=== PATIENT | male | born 1955 | race Caucasian/White ===

== ENCOUNTER 2020-11-09 01:45 | Outpatient (CLI) | payer MEDICARE, MEDICAID, SELFPAY ==
[2020-11-09 13:31] LABS: Anion Gap 5.5 mmol/L (3-11); BUN 15 mg/dL (7-18); CO2 30.5 mmol/L (21.0-32.0); CREATININE 1.1 mg/dL (0.70-1.30); Calcium 8.7 mg/dL (8.5-10.1); Calculated LDL 224 mg/dL (<100); Chloride 106 mmol/L (98-107); Cholesterol 317 mg/dL (<200); Glucose 84 mg/dL (74-106); HDL Cholesterol 37 mg/dL (40-60); Potassium 4.3 mmol/L (3.5-5.1); Sodium 142 mmol/L (136-145); Triglyceride 281 mg/dL (<150)
[2020-11-09 13:33] LABS: Hemoglobin A1C 5.5 % (<5.7)
== END 2020-11-09 01:46 | disposition home or self-care (01) ==
LOC: LOS 01:45
PROVIDERS: PCP Nurse Practitioner; Visit Provider Nurse Practitioner
DX: N18.31 Chronic kidney disease, stage 3a (principal); Z13.220 Encounter for screening for lipoid disorders; Z13.1 Encounter for screening for diabetes mellitus
CPT/HCPCS: 36415; 80048; 80061; 83036

== ENCOUNTER 2022-02-10 04:25 | Outpatient (CLI) | payer MEDICARE, MEDICAID, SELFPAY ==
[2022-02-10 12:36] LABS: Anion Gap 9.5 mmol/L (3-11); BUN 14 mg/dL (7-18); CO2 26.5 mmol/L (21.0-32.0); CREATININE 1.1 mg/dL (0.70-1.30); Calcium 8.5 mg/dL (8.5-10.1); Calculated LDL 165 mg/dL (<100); Chloride 104 mmol/L (98-107); Cholesterol 247 mg/dL (<200); Glucose 98 mg/dL (74-106); HDL Cholesterol 43 mg/dL (40-60); Potassium 4.3 mmol/L (3.5-5.1); Sodium 140 mmol/L (136-145); Triglyceride 199 mg/dL (<150)
[2022-02-10 12:59] LABS: Hemoglobin A1C 5.7 % (<5.7)
== END 2022-02-10 04:26 | disposition home or self-care (01) ==
LOC: LOS 04:26
PROVIDERS: PCP Nurse Practitioner; Visit Provider Nurse Practitioner
DX: N18.31 Chronic kidney disease, stage 3a (principal); R73.09 Other abnormal glucose; N52.9 Male erectile dysfunction, unspecified
CPT/HCPCS: 36415; 80048; 80061; 83036

== ENCOUNTER 2022-06-23 11:16 | Outpatient (CLI) | payer MEDICARE, MEDICAID, SELFPAY ==
--- NOTE | 2022-06-23 09:18 | DI.RAD_ITS ---
Exam(s) XR THORACIC SPINE COMPLETE EXAM: XR THORACIC SPINE COMPLETE CLINICAL HISTORY: [id number], INCREASE IN PAIN TO MID BACK. TECHNIQUE: 2D digital imaging was performed. Three views. COMPARISON: No exams were available for comparison FINDINGS: BONES: There is no fracture or destructive lesion. The vertebral bodies and posterior elements are un remarkable. ALIGNMENT: Within normal limits. DISKS: There are small endplate osteophytes andMild anterior disc space narrowing. SOFT TISSUE: Visualized lungs are clear. The heart size is normal. IMPRESSION: Mild degenerative disc changes. DATA REPOSITORY: RADIATION DOSE DELIVERED:
== END 2022-06-23 11:36 ==
LOC: DI 11:17
PROVIDERS: PCP Nurse Practitioner Family; Visit Provider Nurse Practitioner Family
DX: M47.814 Spondylosis without myelopathy or radiculopathy, thoracic region (principal)
CPT/HCPCS: 72072

== ENCOUNTER 2023-01-27 03:15 | Outpatient (CLI) | payer MEDICARE, SELFPAY ==
[2023-01-27 12:16] LABS: HCT 43.3 % (40.0-50.0); HGB 14.5 g/dL (13.5-17.5); MCH 30.6 pg (27.0-33.0); MCHC 33.5 % (32.0-36.0); MCV 91 fL (80-95); MPV 10.9 fL (8.0-11.0); Platelet Count 202 10^3/uL (130-400); RBC 4.74 10^6/uL (4.36-5.78); RDW 13.2 % (11.8-14.1); RDW-SD 44.7 fL; WBC 6.16 10^3/uL (4.4-10.8)
[2023-01-27 12:31] LABS: Anion Gap 4.8 mmol/L (3-11); BUN 14 mg/dL (7-18); CO2 30.2 mmol/L (21.0-32.0); CREATININE 1.1 mg/dL (0.70-1.30); Calcium 8.8 mg/dL (8.5-10.1); Calculated LDL 176 mg/dL (<100); Chloride 107 mmol/L (98-107); Cholesterol 270 mg/dL (<200); Estimated GFR 73.58 (mL/min/1.73m2); Glucose 93 mg/dL (74-106); HDL Cholesterol 44 mg/dL (40-60); Potassium 4.2 mmol/L (3.5-5.1); Sodium 142 mmol/L (136-145); Triglyceride 253 mg/dL (<150)
== END 2023-01-27 03:16 | disposition home or self-care (01) ==
LOC: LOS 03:16
PROVIDERS: PCP Nurse Practitioner Family; Visit Provider Nurse Practitioner Family
DX: E78.5 Hyperlipidemia, unspecified (principal); N52.9 Male erectile dysfunction, unspecified; M54.59 Other low back pain; N18.31 Chronic kidney disease, stage 3a
CPT/HCPCS: 36415; 80048; 80061; 85027

== ENCOUNTER 2024-10-12 01:40 | Outpatient (CLI) | payer MEDICARE, SELFPAY ==
[2024-10-12 12:37] LABS: Anion Gap 5.2 mmol/L (3-11); BUN 16 mg/dL (7-18); CO2 29.8 mmol/L (21.0-32.0); CREATININE 1.2 mg/dL (0.70-1.30); Calculated LDL 210 mg/dL (<100); Chloride 107 mmol/L (98-107); Cholesterol 304 mg/dL (<200); Estimated GFR 65.46 (mL/min/1.73m2); Glucose 98 mg/dL (74-106); HDL Cholesterol 42 mg/dL (>or=40); Potassium 4.6 mmol/L (3.5-5.1); Sodium 142 mmol/L (136-145); Triglyceride 262 mg/dL (<150)
[2024-10-12 13:39] LABS: Hemoglobin A1C 5.6 % (<5.7)
== END 2024-10-12 01:41 | disposition home or self-care (01) ==
LOC: LOS 01:40
PROVIDERS: PCP Nurse Practitioner Family; Visit Provider Nurse Practitioner Family
DX: N52.9 Male erectile dysfunction, unspecified; N18.31 Chronic kidney disease, stage 3a; E78.2 Mixed hyperlipidemia; R73.09 Other abnormal glucose
CPT/HCPCS: 36415; 80048; 80061; 84153; 83036

== ENCOUNTER 2025-04-24 11:18 | Emergency (ER) | payer MEDICARE, SELFPAY ==
[2025-04-24] VITALS (25 sets, daily range): BP systolic 138–172; BP diastolic 74–92; PULSE 77–97; RESP 10–30; TEMP 34.5; O2SAT 97–100
--- NOTE | 2025-04-24 11:00 | DI.CT_ITS ---
Exam(s) CT BRAIN NECK CTA EXAM: CT BRAIN NECK CTA CLINICAL HISTORY: cva, rt facial droop 1 hr. TECHNIQUE: Imaging Protocol: Axial CT angiography was performed with multi- slice acquisition and multi-planar and/or 3D reconstructions. CONTRAST MATERIAL: Intravenous: Omnipaque 350 Contrast volume:structured data in ml COMPARISON: No exams were available for comparison FINDINGS: CTA Neck W: Aortic arch anatomy: The aortic arch anatomy is conventional and there is no significant stenosis at the origin of the great vessels off of the aortic arch. No intimal flap evident. Anterior circulation: Both common carotid arteries ascend with normal luminal diameters. At the level the left carotid bulb and proximal left ICA there is some partially calcified plaque on the anterolateral wall with approximately 20 percent stenosis. The left ICA above this level in the upper neck appears unremarkable as well as in the skull base-carotid canal. At the right carotid bulb and proximal right ICA there is minimal if any significant plaque. No significant stenosis and the right ICA in the upper neck is patent as well as within the skull base-right carotid canal. There is significant atherosclerotic disease in both intra cavernous internal carotid arteries. There is some stenosis in the left intracavernous ICA. There is high-grade stenosis in the intra cavernous right ICA. The supraclinoid aspect appears patent and there is flow evident within the right middle cerebral artery. the left A1 segment is dominant. There is calcified plaque evident in the left intra cavernous ICA but without critical stenosis at this time. Flow in left middle cerebral artery is patent. Left A1 segment is patent as are the anterior cerebral arteries and there is no evidence of aneurysm at the level the anterior communicating artery. Posterior circulation: Both vertebral arteries originated conventional fashion off of the subclavian arteries. Both vertebral arteries ascend with normal luminal diameters. At the skull base both vertebral arteries contribute to the formation of the basilar artery. There is no stenosis nor calcified plaque in the vertebral arteries at the skull base. CTA Brain W: Anterior circulation: See above Posterior circulation: Basilar artery ascends with mild stenosis. No critical stenosis. Distally it gives off patent superior cerebellar arteries and above this level terminates as patent bilateral posterior cerebral arteries. There is no evidence of aneurysm at the tip of the basilar artery nor elsewhere in the [id number]. CT BRAIN: There is no evidence of intracranial hemorrhage, mass effect, or shift of midline structures. There are no extra-axial fluid collections. Ventricles are not enlarged or shifted. There are no ring enhancing lesions in the brain and no abnormal meningeal enhancement. IMPRESSION: 1. There is a critical stenosis versus focal occlusion in the intra cavernous aspect of the right internal carotid artery. 2. Flow above this level in the ipsilateral supraclinoid right ICA and middle cerebral artery appear patent. 3. Patent vertebral arteries. 4. No focal findings in the brain. Also no ring-enhancing lesions nor abnormal meningeal enhancement. 5. Some plaque evident at the left carotid bulb-proximal left ICA but estimated at approximately 20 percent stenosis at this level. No evidence of dissection in the carotids. Discussed by phone with ER physician 04/24/2025 at 12:02 p.m. RADIATION DOSE DELIVERED: 2,310.46mGy.cm Total DLP DATA REPOSITORY: All CT scans at this facility are submitted to the National Radiology Data Registry (NRDR) Dose Index Registry (DIR) with the [employer] (ACR). RADIATION OPTIMIZATION: All CT scans at this facility use at least one of these dose optimization techniques: automated exposure control; mA and/or kV adjustment per patient size (includes targeted exams where dose is matched to clinical indication); or iterative reconstruction.
--- NOTE | 2025-04-24 11:00 | RT.EKG_ITS ---
APPROVED REPORT Exam: Resting ECG Reason for Exam: cva Patient Location: E HR:79 bpm ECG Measurements Heart Rate 79 AXIS AR 208 P 25 QRSd 93 QRS 65 QT 408 T 53 QTc 469 Conclusion Sinus rhythm...normal P axis, V-rate 60- 99
[2025-04-24] MEDS: Normal Saline - Diluent 50 ML VIAL IJ (11:24)
[2025-04-24] MEDS: Omnipaque 350 MG/ML 100 ML BTL IJ (11:24)
[2025-04-24] MEDS: Normal Saline Flush 10 ML SYR IVP (11:28)
[2025-04-24 11:43] LABS: Abs Immature Grans 0.03 10^3/uL (0.0-0.06); HCT 37.3 % (40.0-50.0); HGB 13.0 g/dL (13.5-17.5); Immature Grans % 0.3 %; MCH 31.0 pg (27.0-33.0); MCHC 34.9 % (32.0-36.0); MCV 89 fL (80-95); MPV 10.4 fL (8.0-11.0); Platelet Count 175 10^3/uL (130-400); RBC 4.19 10^6/uL (4.36-5.78); RDW 12.5 % (11.8-14.1); RDW-SD 39.9 fL; WBC 9.01 10^3/uL (4.4-10.8)
--- NOTE | 2025-04-24 11:43 | W.ED.GENAD ---
Discharge Plan Disposition Patient Disposition: Transfer-Acute Inpatient Care Specific Acute Inpt Facility: [facility] Condition: Critical Discharge Details Clinical Impression: Acute cerebrovascular accident (CVA) Primary Care Provider: Kenya Lewis ED Provider: Joel Quinteros Home Meds and New Rx's Prescriptions: No Action brimonidine-timolol [Combigan] 0.2-0.5 % drops 1 drp ophthalmic (eye) BID atorvastatin [Lipitor] 80 mg tablet 80 mg PO DAILY Rx Instructions: Take for 90 days aspirin 81 mg tablet,chewable 81 mg PO DAILY Rx Instructions: take X 90 days sildenafil (pulm.hypertension) 20 mg tablet 20 mg PO As directed Qty: 20 4RF clindamycin HCl 150 mg capsule 450 mg PO TID 7 Days Qty: 63 0RF meclizine 25 mg tablet 25 mg PO BID PRN (Reason: dizziness) Qty: 30 0RF Discharge Data Discharge Date/Time-TO BE ENTERED AT DEPARTURE: 04/24/25 14:58 HPI General Mode of arrival: EMS. Date/Time Provider Initiated Documentation: 04/24/25 11:30. Information obtained by: patient and EMS. HPI Narrative: 69-year-old male with history of hyperlipidemia, chronic kidney disease, presents with acute onset of right-sided weakness. Patient noted sudden onset weakness at 10:30 AM. Called EMS who found the patient with mild right-sided weakness that became significantly worse and route to the hospital. Patient having nausea and vomited. EMS gave Zofran 4 mg IV prior to arrival. Related Data Home Medications Medication Instructions Recorded Confirmed sildenafil (pulm.hypertension) 20 20 mg PO As directed #20 tabs 10/13/22 05/01/25 mg tablet brimonidine 0.2 %-timolol 0.5 % 1 drp ophthalmic (eye) BID 11/10/24 05/01/25 eye drops (Combigan) aspirin 81 mg chewable tablet 81 mg PO DAILY 04/27/25 05/01/25 atorvastatin 80 mg tablet (Lipitor) 80 mg PO DAILY 04/27/25 05/01/25 clindamycin HCl 150 mg capsule 450 mg (3 x 150 mg) PO TID 7 days 04/29/25 05/01/25 #63 caps meclizine 25 mg tablet 25 mg PO BID PRN dizziness #30 tabs 04/29/25 05/01/25 Previous Rx's Medication Instructions Recorded sildenafil (pulm.hypertension) 20 20 mg PO As directed #20 tabs 10/13/22 mg tablet clindamycin HCl 150 mg capsule 450 mg (3 x 150 mg) PO TID 7 days 04/29/25 #63 caps meclizine 25 mg tablet 25 mg PO BID PRN dizziness #30 tabs 04/29/25 Allergies Allergy/AdvReac Type Severity Reaction Status Date / Time Penicillins Allergy Intermediate Hives Unverified 05/01/25 14:27 carrot Allergy ONLY WHEN Unverified 05/01/25 14:27 RAW travoprost Allergy SWELLLING Unverified 05/01/25 14:27 ALL OVER dorzolamide AdvReac DEPRESSION Unverified 05/01/25 14:27 potato AdvReac Eye Verified 05/01/25 14:27 irritation timolol AdvReac DEPRESSION Unverified 05/01/25 14:27 PECAN Allergy Unknown Uncoded 05/01/25 14:27 General Stated Complaint: CVA/TIA ANTHONY: 2 Review of Systems All systems reviewed & are unremarkable except as noted in HPI and below Neurologic Neurologic: Reports as per HPI and Reports sensory deficit (Patient notes right side felt numb) Exam Const General: cooperative and no acute distress HENME Head: normocephalic and atraumatic Eyes Conjunctivae: normal conjunctivae Sclera: normal sclerae EOM: EOM intact bilaterally Neck Neck: trachea midline and supple Resp Auscultation: clear to auscultation bilaterally, no rales, no rhonchi and no wheezes Cardio Rate: regular rate and not tachycardic Rhythm: regular rhythm GI Palpation: soft, not firm, no guarding, no masses, not rigid and nontender Skin General skin exam: no rashes or lesions noted Neuro General: patient alert, patient awake and tone normal Cognition: normal cognition Speech: abnormal speech slurred Motor: strength 5/5 throughout Sensory Exam: no sensory deficits noted Extrem General: no edema Psych Appearance: grossly normal Mental Status: mental status grossly normal Course Vital Signs Vital signs: Vital Signs Temperature 34.5 C L 04/24/25 11:38 Pulse 81 04/24/25 11:38 Respiratory Rate 18 04/24/25 11:38 Blood Pressure 172/75 H 04/24/25 11:38 Pulse Oximetry 100 04/24/25 11:38 Temperature 34.5 C L 04/24/25 11:38 Temperature Source Tympanic 04/24/25 11:38 Pulse 81 04/24/25 11:38 Respiratory Rate 18 04/24/25 11:38 Blood Pressure 172/75 H 04/24/25 11:38 Pulse Oximetry 100 04/24/25 11:38 Oxygen Delivery Method Room Air 04/24/25 11:38 Oxygen Flow Rate 0 04/24/25 11:38 Medical Decision Making 1100––69-year-old male with history of chronic kidney disease, hyperlipidemia, presents with new onset right-sided weakness that started around 1030 this morning. Patient had significant worsening of right-sided weakness and route. EMS initiated stroke alert. Patient was seen in the hallway and had rapid transfer to CT imaging. Glucose is normal. 1130 --patient was seen immediately upon return from CT imaging and has had significant spontaneous improvement of his symptoms. House he is now able to move his right side, speaking more clearly still with some mild dysarthria. Patient was full strength on his right upper and lower extremity. He continues to have mild right facial weakness. Patient continues to have nausea. He was given Zofran by EMS. I will give Reglan IV. Will initiate stat teleneuro consult. 1150 --I have initiated teleneuro consult stat. I have contacted [facility] [place] transfer center to request transfer capacity. CT imaging sent for review. Awaiting callback. --CT brain and CTA of the head and neck interpreted by radiology: IMPRESSION: 1. There is a critical stenosis versus focal occlusion in the intra cavernous aspect of the right internal carotid artery. 2. Flow above this level in the ipsilateral supraclinoid right ICA and middle cerebral artery appear patent. 3. Patent vertebral arteries. 4. No focal findings in the brain. Also no ring-enhancing lesions nor abnormal meningeal enhancement. 5. Some plaque evident at the left carotid bulb-proximal left ICA but estimated at approximately 20 percent stenosis at this level. No evidence of dissection in the carotids. 1209 -- Patient seen by Dr. Ulysses bautista. Patient having worsening symptoms starting exam. Risk benefits of TNK were reviewed with patient by myself and Dr. Arora. Patient provides informed consent to treatment with TNK. I spoke again with [facility], Dr. Eduardo Delacruz and Dr. Chaudhry. They will accept the patient in transfer pending capacity check. 1223 -- [facility] at [facility] transfer center noting per medical voucher clerk that they only have one bed available in icu and cannot use for an nonintervention patient. [facility] is refusing to accept the patient in transfer. I have contacted [facility] transfer center to request transfer. 1322 -- I spoke with Dr. Haynes, stroke neurology at [facility], discussed ED presentation course, she will be reviewing imaging and calling back. 1430 --[facility] transfer center returned call and notes patient will be accepted by Dr. Haynes. They recommend keeping blood pressure less than 180/105. Patient was reassessed and symptoms have improved. Blood pressure less than goal. Will arrange for EMS transfer. Lab Data Lab results reviewed: Yes I reviewed the patient's lab results. Labs: Laboratory Tests Range/Units 04/24/25 04/24/25 11:30 13:15 WBC (4.4-10.8) 10^3/uL 9.01 RBC (4.36-5.78) 10^6/uL 4.19 L Hgb (13.5-17.5) g/dL 13.0 L Hct (40.0-50.0) % 37.3 L MCV (80-95) fL 89 MCH (27.0-33.0) pg 31.0 MCHC (32.0-36.0) % 34.9 RDW (11.8-14.1) % 12.5 Plt Count (130-400) 10^3/uL 175 MPV (8.0-11.0) fL 10.4 Immature Gran % % 0.3 Neutrophils % % 50.1 Lymphocytes % % 35.8 Monocytes % % 10.2 Eosinophils % % 2.7 Basophils % % 0.9 Nucleated RBC % (0.0-0.3) % 0.0 Absolute Neutrophils (1.2-6.7) 10^3/uL 4.51 Absolute Lymphocytes (1.2-3.4) 10^3/uL 3.23 Absolute Monocytes (0.1-0.8) 10^3/uL 0.92 H Absolute Eosinophils (0.0-0.7) 10^3/uL 0.24 Absolute Basophils (0.0-0.2) 10^3/uL 0.08 PT (9.1-11.1) sec 11.1 INR (0.9-1.1) 1.1 Sodium (136-145) mmol/L 140 Potassium (3.5-5.1) mmol/L 3.9 Chloride (98-107) mmol/L 106 Carbon Dioxide (21.0-32.0) mmol/L 23.8 Anion Gap (3-11) mmol/L 10.2 BUN (7-18) mg/dL 14 Creatinine (0.70-1.30) mg/dL 1.2 Est GFR (CKD-EPI 2020) (mL/min/1.73m2) 65.46 Glucose (74-106) mg/dL 146 H Calcium (8.5-10.1) mg/dL 7.9 L Magnesium (1.8-2.4) mg/dL 2.1 Total Bilirubin (0.2-1.0) mg/dL 0.5 AST (15-37) U/L 16 ALT (16-63) U/L 17 Alkaline Phosphatase (46-116) U/L 55 Troponin I (<or=76) ng/L < 4 < 4 Total Protein (6.4-8.2) g/dL 6.3 L Albumin (3.4-5.0) g/dL 3.0 L Quality:SDOH Health Related Social Needs: Health related social needs lonely/isolated Critical Care Time Critical Care Time Critical Care Time: Yes Total Critical Care Time: 80 Attestation: Due to a high probability of clinically significant, life threatening deterioration, the patient required my highest level of preparedness to intervene emergently and I personally spent this critical care time directly and personally managing the patient. This critical care time included obtaining a history; examining the patient; pulse oximetry; ordering and review of studies; arranging urgent treatment with development of a management plan; evaluation of patient's response to treatment; frequent reassessment; and, discussions with other providers. This critical care time was performed to assess and manage the high probability of imminent, life-threatening deterioration that could result in multi-organ failure. It was exclusive of separately billable procedures and treating other patients and teaching time. Please see MDM section and the rest of the note for further information on patient assessment and treatment. 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 Maternal Grandfather , 77 Cancer Paternal Grandfather , 44 Cancer Maternal Grandmother , 62 Cancer Paternal Grandmother , 92 No problems noted. Son No problems noted. Daughter No problems noted. Social History Smoking/Tobacco Use Status: Never Second Hand Exposure: Yes Smoking risk assessment performed?: Yes Alcohol Intake: current Alcohol Intake frequency: a few times a month Alcohol type: beer Drug use: Rarely Substance use type: marijuana Caregiver/Support person: No Household members: children Housing: house Communication Needs: None Do you need help understanding health information?: Never current occupation: Retired Pets and animals: Yes Pets and animals: cat(s) Sexually active: No Do you think of yourself as: straight/heterosexual Current gender identity: male What is your relationship status?: How often do you talk on the phone with friends or family?: three or more times per week How often do you get together with friends or relatives?: twice per week How often do you attend zoroastrian or scientology services?: decline to answer Do you belong to any clubs or organized social groups?: yes Panel score (0-1 are the most socially isolated patients): 2 What type of physical activity do you participate in: bicycling, weight lifting and other Details: Hiking Duration: 30-45 minutes/day Frequency: 3-4 times per week Kasia/Scientology: Christianity Special kasia needs: No Seatbelt use: always Helmet use: Yes Helmet use: always Drive intox or ride w/intox feeder driver: No Do you feel safe at home: Yes
[2025-04-24 11:53] LABS: INR 1.1 (0.9-1.1); Prothrombin Time 11.1 sec (9.1-11.1)
[2025-04-24 12:19] LABS: ALT 17 U/L (16-63); AST 16 U/L (15-37); Albumin 3.0 g/dL (3.4-5.0); Alkaline Phosphatase 55 U/L (46-116); Anion Gap 10.2 mmol/L (3-11); BUN 14 mg/dL (7-18); Bilirubin, Total 0.5 mg/dL (0.2-1.0); CO2 23.8 mmol/L (21.0-32.0); Calcium 7.9 mg/dL (8.5-10.1); Chloride 106 mmol/L (98-107); Glucose 146 mg/dL (74-106); Magnesium 2.1 mg/dL (1.8-2.4); Potassium 3.9 mmol/L (3.5-5.1); Sodium 140 mmol/L (136-145); Total Protein 6.3 g/dL (6.4-8.2); Troponin I < 4 ng/L (<or=76)
[2025-04-24] MEDS: Metoclopramide 10 MG/2 ML VIAL IVP (12:21)
[2025-04-24] MEDS: Tenecteplase 50 MG KIT 20 MG IVP (12:21)
--- NOTE | 2025-04-24 12:51 | DI.VRAD_ITS ---
PROCEDURE INFORMATION: Exam: CTA Head Without And With Contrast, Arteriography Exam date and time: 04/24/2025 11:17 AM Age: 69 years old Clinical indication: Other: CVA, RT facial droop 1 hr TECHNIQUE: Imaging protocol: Computed tomographic angiography of the head without and with contrast. Exam focused on the arteries. 3D rendering (Not supervised by radiologist): MIP and/or 3D reconstructed images were created by the technologist. Contrast material: OMNIPAQUE 350; Contrast volume: 70 ml; Contrast route: INTRAVENOUS (IV); COMPARISON: No relevant prior studies available. FINDINGS: ANTERIOR CIRCULATION: Right internal carotid artery: Severe stenosis of the cavernous segment of the right ICA. Right middle cerebral artery: No occlusion or significant stenosis. No aneurysm. Right anterior cerebral artery: Atrophic right A1. Left internal carotid artery: Moderate to severe stenosis of the cavernous segment of the left ICA. Left middle cerebral artery: No occlusion or significant stenosis. No aneurysm. Left anterior cerebral artery: No occlusion or significant stenosis. No aneurysm. POSTERIOR CIRCULATION: Right vertebral artery: No occlusion or significant stenosis. No aneurysm. Left vertebral artery: No occlusion or significant stenosis. No aneurysm. Basilar artery: No occlusion or significant stenosis. No aneurysm. Right posterior cerebral artery: No occlusion or significant stenosis. No aneurysm. Left posterior cerebral artery: No occlusion or significant stenosis. No aneurysm. HEAD: Brain: Normal. No hemorrhage. Unremarkable white matter. No mass effect. Cerebral ventricles: Normal. No ventriculomegaly. Bones: Unremarkable. No acute fracture. Paranasal sinuses: Visualized sinuses are normal. No fluid levels. Mastoid air cells: Visualized mastoids are normal. No mastoid effusion. Soft tissues: Unremarkable. IMPRESSION: 1. No large vessel occlusion. 2. Severe stenosis of the right cavernous ICA. 3. Moderate to severe stenosis of the cavernous left ICA. 4. Unremarkable CT head. PROCEDURE INFORMATION: Exam: CTA Neck Without And With Contrast Exam date and time: 04/24/2025 11:17 AM Age: 69 years old Clinical indication: Other: CVA, RT facial droop 1 hr TECHNIQUE: Imaging protocol: Computed tomographic angiography of the neck without and with contrast. Exam focused on the cervical segments of the vasculature. 3D rendering (Not supervised by radiologist): MIP and/or 3D reconstructed images were created by the technologist. Contrast material: OMNIPAQUE 350; Contrast volume: 70 ml; Contrast route: INTRAVENOUS (IV); COMPARISON: No relevant prior studies available. FINDINGS: Right common carotid artery: No stenosis. No dissection or occlusion. Right internal carotid artery: No stenosis of the extracranial segment. No dissection or occlusion. Right external carotid artery: No occlusion or stenosis of the origin. Left common carotid artery: No stenosis. No dissection or occlusion. Left internal carotid artery: Mild stenosis at the carotid bulb. No dissection or occlusion. Left external carotid artery: No occlusion or stenosis of the origin. Right vertebral artery: No stenosis. No dissection or occlusion. Left vertebral artery: No stenosis. No dissection or occlusion. Soft tissues: Normal. No significant soft tissue swelling. Bones/joints: No acute fracture. IMPRESSION: Mild left ICA stenosis at the carotid bulb. REFERENCES: NASCET CRITERIA. The degree of stenosis in the cervical segment of the internal carotid artery is based on NASCET criteria. Normal is no stenosis. Mild is less than 50% stenosis. Moderate is 50-69% stenosis. Severe is 70% to 99% stenosis. Total occlusion is no detectable patent lumen. Dictated and Authenticated by: Jaida Kimball MD. Orderin Aldair Maldonado MD
[2025-04-24] MEDS: Lactated Ringers 1,000 ML 125 ML IV (13:17)
[2025-04-24 13:54] LABS: Troponin I < 4 ng/L (<or=76)
== END 2025-04-24 14:58 | disposition short-term general hospital (02) ==
PROVIDERS: Emergency Provider Student in an Organized Health Care Education/Training Program; PCP Nurse Practitioner Family
DX: I63.9 Cerebral infarction, unspecified (principal); R11.2 Nausea with vomiting, unspecified; Z60.8 Other problems related to social environment; Z87.448 Personal history of other diseases of urinary system; Z86.2 Personal history of diseases of the blood and blood-forming organs and certain disorders involving the immune mechanism
CPT/HCPCS: 36415; 36416; 70496; 70498; 80053; 82962; 93005; 96361; 96374; 96375; 99285; 99291; 83735; 84484; 85025; 85610; 93010; J2765; J3101; J3490

== ENCOUNTER 2025-04-29 06:08 | Emergency (ER) | payer MEDICARE, SELFPAY ==
[2025-04-29] VITALS (15 sets, daily range): BP systolic 160–193; BP diastolic 80–115; PULSE 61–81; RESP 9–19; TEMP 36.7; O2SAT 98–100
--- NOTE | 2025-04-29 06:37 | W.ED.GENAD ---
Discharge Plan Discharge Details Chief Complaint: Fall/Non TraumaCriteria Clinical Impression: Fall, Episodic lightheadedness Primary Care Provider: Kenya Lewis ED Provider: Khai Chow Home Meds and New Rx's Prescriptions: No Action brimonidine-timolol [Combigan] 0.2-0.5 % drops 1 drp ophthalmic (eye) BID atorvastatin [Lipitor] 80 mg tablet 80 mg PO DAILY Rx Instructions: Take for 90 days aspirin 81 mg tablet,chewable 81 mg PO DAILY Rx Instructions: take X 90 days sildenafil (pulm.hypertension) 20 mg tablet 20 mg PO As directed Qty: 20 4RF HPI General Date/Time Provider Initiated Documentation: 04/29/25 06:14. HPI Narrative: This is a 69-year-old male with a past medical history of high cholesterol, a recent stroke with subsequent right-sided deficits (stroke occurred less than 7 days ago, patient received TNK and was transferred to [facility] and was subsequently discharged about 3 to 4 days ago) presents today for nausea and slight weakness and imbalance. And fall. when he woke up this morning he felt Patient states that lightheaded dizzy and slightly imbalance, as well as mildly nauseous. This caused him to fall and hit the right side of his head and neck. He was able to get up on his own. He had no loss of consciousness. Patient subsequently contacted EMS and was brought in for further assessment. Currently he admits to mild right-sided neck achiness, and mild nausea but no other complaints. He denies fever or chills. He denies headache or vision changes. He denies any chest pain or shortness of breath. No other complaints at this time. No other modifying factors. Related Data Home Medications Medication Instructions Recorded Confirmed sildenafil (pulm.hypertension) 20 20 mg PO As directed #20 tabs 10/13/22 04/29/25 mg tablet brimonidine 0.2 %-timolol 0.5 % 1 drp ophthalmic (eye) BID 11/10/24 04/29/25 eye drops (Combigan) aspirin 81 mg chewable tablet 81 mg PO DAILY 04/27/25 04/29/25 atorvastatin 80 mg tablet (Lipitor) 80 mg PO DAILY 04/27/25 04/29/25 Previous Rx's Medication Instructions Recorded sildenafil (pulm.hypertension) 20 20 mg PO As directed #20 tabs 10/13/ mg tablet Allergies Allergy/AdvReac Type Severity Reaction Status Date / Time Penicillins Allergy Intermediate Hives Unverified 04/29/25 06:31 carrot Allergy ONLY WHEN Unverified 04/29/25 06:31 RAW travoprost Allergy SWELLLING Unverified 04/29/25 06:31 ALL OVER dorzolamide AdvReac DEPRESSION Unverified 04/29/25 06:31 potato AdvReac Eye Verified 04/29/25 06:31 irritation timolol AdvReac DEPRESSION Unverified 04/29/25 06:31 PECAN Allergy Unknown Uncoded 04/29/25 06:31 General Stated Complaint: Fall/Non TraumaCriteria ANTHONY: 3 Exam Narrative Exam Narrative: 1.Const: Well-nourished, Well-developed, appearing stated age 2.Eyes: PERRL, no conjunctival injection, and symmetrical lids. 3.ENT: Atraumatic external nose and ears. Moist MM. Neck: Symmetric, trachea midline, No thyromegaly. There is no evidence of raccoon eyes, adan sign, CSF rhinorrhea, mastoid tenderness, cranial crepitus, Exophthalmos, or hyphema. Patient demonstrates intact dentition with no signs of tooth avulsion or fracture, no signs of jaw deformity, no evidence of a LeFort's fracture, with an intact palate, nose and orbital region. There is no evidence of a nasal septal hematoma. No proptosis. Jaw closes symmetrically. Airway is clear. 4.CVS: +S1/S2, Peripheral pulses 2+ and equal in all extremities. Brisk capillary refill in all extremities. 5.RESP: Unlabored respiratory effort. Clear to auscultation bilaterally. No wheezes rales or rhonchi 6.GI: Soft, Nontender/Nondistended, No hepatosplenomegaly. No guarding or rebound. 7.MSK: Normocephalic/Atraumatic, Extremities w/o deformity or ttp No cyanosis or clubbing, Normal movement of all extremities 8.Skin: Warm, Dry. No rashes or lesions. 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 Sensation grossly intact, no focal neurologic deficits. All 6 cardinal planes of vision are fully intact. No evidence of rotatory or vertical nystagmus. The patient demonstrated a normal [id number]-ehwq-cvvynk, good dexterity. There was no evidence of dysdiadochokinesia. Patient was able to ambulate without difficulty. There was no wide-based gait. Romberg testing was normal. Qsha-vs-vzoq testing was normal. Sensation was intact bilaterally as well as muscle strength bilaterally for all extremities. Patient was able to verbalize butter cup with no slurring, or miss pronunciation. 10.Psych: (AAO) x3. Appropriate mood and affect Course Vital Signs Vital signs: Vital Signs Temperature 36.7 C 04/29/25 06:14 Pulse 70 04/29/25 06:14 Respiratory Rate 14 04/29/25 06:14 Blood Pressure 180/88 H 04/29/25 06:14 Temperature 36.7 C 04/29/25 06:14 Temperature Source Oral 04/29/25 06:14 Pulse 70 04/29/25 06:14 Respiratory Rate 14 04/29/25 06:14 Blood Pressure 180/88 H 04/29/25 06:14 Blood Pressure Position Supine 04/29/25 06:14 Oxygen Delivery Method Room Air 04/29/25 06:14 Oxygen Flow Rate 0 04/29/25 06:14 End Tidal Co2 2 04/29/25 06:14 Pain Level 2 04/29/25 06:28 Medical Decision Making This is a 69-year-old male with a past medical history of high cholesterol, a recent stroke with subsequent right-sided deficits (stroke occurred less than 7 days ago, patient received TNK and was transferred to [facility] and was subsequently discharged about 3 to 4 days ago) presents today for nausea and slight weakness and imbalance. And fall. when he woke up this morning he felt Patient states that lightheaded dizzy and slightly imbalance, as well as mildly nauseous. This caused him to fall and hit the right side of his head and neck. He was able to get up on his own. He had no loss of consciousness. Patient subsequently contacted EMS and was brought in for further assessment. Currently he admits to mild right-sided neck achiness, and mild nausea but no other complaints. He denies fever or chills. He denies headache or vision changes. He denies any chest pain or shortness of breath. No other complaints at this time. No other modifying factors. Exam demonstrates well-appearing male, no focal tenderness of the head neck chest abdomen or pelvis. No midline cervical spine tenderness. No evidence of acute focal neurologic deficit on exam at this time. Differential includes mild dehydration, peripheral vertigo, residual symptoms from initial stroke, pancreatitis. We will evaluate for concerning etiologies, will gently rehydrate, give meclizine, monitor closely and reassess. 7:04 AM Patient's laboratory workup is returned reassuring. No significant abnormalities. Lipase normal, no white count or bandemia. Still pending CT imaging at this time. Patient will be signed out to my colleague Dr. Brantley will follow-up on imaging results. 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 Maternal Grandfather , 77 Cancer Paternal Grandfather , 44 Cancer Maternal Grandmother , 62 Cancer Paternal Grandmother , 92 No problems noted. Son No problems noted. Daughter No problems noted. Social History Smoking/Tobacco Use Status: Never Second Hand Exposure: Yes Smoking risk assessment performed?: Yes Alcohol Intake: current Alcohol Intake frequency: a few times a month Alcohol type: beer Drug use: Rarely Substance use type: marijuana Caregiver/Support person: No Household members: children Housing: house Communication Needs: None Do you need help understanding health information?: Never current occupation: Retired Pets and animals: Yes Pets and animals: cat(s) Sexually active: No Do you think of yourself as: straight/heterosexual Current gender identity: male What is your relationship status?: How often do you talk on the phone with friends or family?: three or more times per week How often do you get together with friends or relatives?: twice per week How often do you attend holiness or tenriism services?: decline to answer Do you belong to any clubs or organized social groups?: yes Panel score (0-1 are the most socially isolated patients): 2 What type of physical activity do you participate in: bicycling, weight lifting and other Details: Hiking Duration: 30-45 minutes/day Frequency: 3-4 times per week Kasia/Protestant: Jehovah'S Witness Special kasia needs: No Seatbelt use: always Helmet use: Yes Helmet use: always Drive intox or ride w/intox school bus driver: No Do you feel safe at home: Yes PAWSS Have you Been Recently Intoxicated or Drunk Within the Last 30 days?: No Have you Ever Experienced Previous Episodes of Alcohol Withdrawal?: No Have you ever Experienced Withdrawal Seizures?: No Have you ever Experienced Delirium Tremens(DT)s?: No Have you ever undergone Alcohol Rehabilitation Treatment (i.e, inpt ot outpatient treatment programs)?: No Have you ever Experienced Blackouts?: No Have you ever Combined Alcohol with other Downers within the last 90 days?: No Have you ever Combined Alcohol with any other Substance of Abuse during the last 90 days?: No Positive Blood Alcohol level on Presentation? [PCS.BAL]: No Evidence of Increased Autonomic Activity (i.e. HR>120, tremor, sweating, agitation, nausea)?: No Result: 0
[2025-04-29 06:38] LABS: Abs Immature Grans 0.03 10^3/uL (0.0-0.06); HCT 40.1 % (40.0-50.0); HGB 14.0 g/dL (13.5-17.5); Immature Grans % 0.4 %; MCH 30.8 pg (27.0-33.0); MCHC 34.9 % (32.0-36.0); MCV 88 fL (80-95); MPV 10.2 fL (8.0-11.0); Platelet Count 197 10^3/uL (130-400); RBC 4.54 10^6/uL (4.36-5.78); RDW 12.2 % (11.8-14.1); RDW-SD 39.8 fL; WBC 7.20 10^3/uL (4.4-10.8)
[2025-04-29] MEDS: Omnipaque 350 MG/ML 100 ML BTL IJ (06:53)
[2025-04-29] MEDS: Normal Saline Flush 10 ML SYR IVP (06:54)
[2025-04-29] MEDS: Normal Saline - Diluent 50 ML VIAL IJ (06:54)
[2025-04-29 06:57] LABS: Lipase 29 U/L (<53)
[2025-04-29 06:59] LABS: ALT 17 U/L (10-49); AST 19 U/L (<34); Albumin 3.8 g/dL (3.4-5.0); Alkaline Phosphatase 67 U/L (46-116); Anion Gap 9 mmol/L (3-11); BUN 12 mg/dL (9-23); Bilirubin, Total 0.80 mg/dL (0.2-1.2); CO2 26.0 mmol/L (20.0-31.0); Calcium 9.0 mg/dL (8.3-10.6); Chloride 107 mmol/L (98-107); Glucose 107 mg/dL (74-106); Potassium 3.8 mmol/L (3.5-5.1); Sodium 142 mmol/L (136-145); Total Protein 6.7 g/dL (5.7-8.2)
--- NOTE | 2025-04-29 07:07 | DI.CT_ITS ---
Exam(s) CT HEAD CERV SPINE FACIAL WO EXAM: CT HEAD CERV SPINE FACIAL WO CLINICAL HISTORY: recent stroke and TNK,, now fall on R side. TECHNIQUE: Imaging Protocol: Axial computed tomography images with coronal and sagittal reformatted images were created and reviewed COMPARISON: CT CT BRAIN NECK CTA from 04/24/2025 FINDINGS: CT BRAIN: There are no skull fractures nor fluid in the visualized paranasal sinuses. There is no evidence of intracranial hemorrhage, mass effect, or shift of midline structures. There are no extra-axial fluid collections. The ventricles are not enlarged or shifted and there is no blood within the ventricular system nor within the basal cisterns. CT MAXILLOFACIAL BONES: There is no evidence of facial fractures nor fluid in the visualized paranasal sinuses. there is no evidence of orbital blowout fracture. No fluid in the mastoid air cells nor in the middle ear cavities. CT CERVICAL SPINE: There is no evidence of fracture nor listhesis. No significant prevertebral soft tissue swelling. There is chronic disc space narrowing at C4-5 level with bilateral Luschka joint osteophytes at this level. There is also some degenerative disc disease at C5-6 level. There is no significant facet art hropathy in the cervical spine and no facet malalignment. Some calcification is noted in the supraspinous ligament but no evidence of lane-termite control service representative's fractures of the spinous process is. IMPRESSION: No acute intracranial findings on this noninfused CT scan of the brain. No evidence of facial nor orbital blowout fractures. No evidence of cervical spine fracture, malalignment, nor acute compromise of the cervical spinal canal. Preliminary virtual Radiology report was reviewed. RADIATION DOSE DELIVERED: 1,759.2mGy.cm Total DLP DATA REPOSITORY: All CT scans at this facility are submitted to the National Radiology Data Registry (NRDR) Dose Index Registry (DIR) with the [employer] (ACR). RADIATION OPTIMIZATION: All CT scans at this facility use at least one of these dose optimization techniques: automated exposure control; mA and/or kV adjustment per patient size (includes targeted exams where dose is matched to clinical indication); or iterative reconstruction.
--- NOTE | 2025-04-29 07:08 | DI.CT_ITS ---
Exam(s) CT ABDOMEN PELVIS W EXAM: CT ABDOMEN PELVIS W CLINICAL HISTORY: nausea and vomiting, recent TNK from stroke. TECHNIQUE: Imaging Protocol: Axial computed tomography images with coronal and sagittal reformatted images were created and reviewed CONTRAST MATERIAL: Intravenous: Omnipaque-350 75cc Oral: z COMPARISON: No exams were available for comparison FINDINGS: VISUALIZED LUNG BASES: No nodules nor pleural effusions evident. ABDOMEN: There is no ascites. No evidence of bowel wall nor mesenteric hematomas. LIVER: Intact. No lacerations. There are no focal hepatic lesions evident. No dilated intrahepatic ducts. GALLBLADDER/BILIARY: No obvious gallbladder pathology. CBD is not dilated. PANCREAS: No evidence of pancreatic mass nor dilatation of the pancreatic duct. SPLEEN: Intact. No lacerations and spleen spleen is not enlarged. No obvious intrasplenic lesions. Splenic and portal veins are patent. ADRENALS: There are no significant adrenal masses. KIDNEYS:No lacerations nor evidence of subcapsular hematomas. There is a E 2.5 by 1.5 by 1.6 cm slightly complicated cyst in the lateral cortex of the left kidney. Bosniak type 2 no other left renal findings. There is a smaller benign cyst in the medial cortex of the right kidney measuring 1 cm.. No renal calculi nor hydronephrosis. No hydroureter. ABDOMINAL AORTA: The abdominal aorta is atherosclerotic below the level the renal arteries with mild fusiform dilatation exhibiting maximum diameter 2.3 cm. The common iliac arteries are calcified but not enlarged. LYMPH NODES:There is no retroperitoneal nor paraaortic adenopathy. ABDOMINAL WALL: No evidence of significant anterior abdominal wall nor inguinal hernia. Right-sided hydrocele noted only partially included in the field of view. GI: Abundant fecal material noted in the colon. No evidence of bowel obstruction, free air, nor abscess. PELVIS: GI: No evidence of appendicitis.No evidence of sigmoid diverticulitis. LYMPH NODES: There is no intrapelvic nor inguinal adenopathy. REPRODUCTIVE: There is moderate enlargement of the prostate which exhibits 5 cm width. Seminal vesicles unremarkable. Incidentally noted is a large hydrocele in the right hemiscrotum. URINARY BLADDER: Moderately distended (12 cm AP) no lesions in the bladder seen. No intraluminal calculi nor clots. OSSEOUS: No fractures and no significant osseous lesions. Chronic advanced disc space narrowing at L4-5 level noted. Other disc spaces exhibit normal height. IMPRESSION: 1. No evidence of significant acute trauma sequelae in the abdomen and pelvis. 2. Incidental note of what are probably bilateral cysts in the kidneys. The larger 2.5 cm finding in the left kidney is probably a Bosniak type 2 cyst. However, given the virtual Radiology report I recommend follow-up bilateral renal ultrasound. That virtual Radiology report states concern for renal cell malignancies. 3. Enlarged prostate gland and distended urinary bladder (12 cm AP) 4. Incidentally noted is a large hydrocele in the right hemiscrotum. There may be another fluid collection posterior to this. Also recommend testicular scrotal ultrasound. Preliminary virtual Radiology report was reviewed. Final report called by myself to the ER provider 04/29/2025 at 7:25 p.m. RADIATION DOSE DELIVERED: 421.07mGy.cm Total DLP DATA REPOSITORY: All CT scans at this facility are submitted to the National Radiology Data Registry (NRDR) Dose Index Registry (DIR) with the [employer] (ACR). RADIATION OPTIMIZATION: All CT scans at this facility use at least one of these dose optimization techniques: automated exposure control; mA and/or kV adjustment per patient size (includes targeted exams where dose is matched to clinical indication); or iterative reconstruction.
[2025-04-29] MEDS: Meclizine 25 MG TAB PO (07:13)
[2025-04-29] MEDS: Normal Saline 1,000 ML 1000 ML IV (07:14)
--- NOTE | 2025-04-29 07:56 | DI.VRAD_ITS ---
PROCEDURE INFORMATION: Exam: CT Head Without Contrast Exam date and time: 04/29/2025 6:41 AM Age: 69 years old Clinical indication: Injury or trauma; Blunt trauma (contusions or hematomas); Head/scalp; Loss of consciousness not known; Injury date: 04/29/25; Recent stroke and tnk, , now fall on R side TECHNIQUE: Imaging protocol: Computed tomography of the head without contrast. Radiation optimization: All CT scans at this facility use at least one of these dose optimization techniques: automated exposure control; mA and/or kV adjustment per patient size (includes targeted exams where dose is matched to clinical indication); or iterative reconstruction. COMPARISON: CT BRAIN NECK CTA 04/24/2025 11:17 AM FINDINGS: Brain: No acute intracranial hemorrhage.. There is mild diffuse heterogeneity of the white matter attenuation, consistent with chronic white matter ischemic changes. Mild cerebral atrophy Cerebral ventricles: No ventriculomegaly. Paranasal sinuses: Visualized sinuses are unremarkable. No fluid levels. Mastoid air cells: Visualized mastoid air cells are well aerated. Bones: Unremarkable. No acute fracture. Soft tissues: Unremarkable. IMPRESSION: No acute intracranial hemorrhage.. PROCEDURE INFORMATION: Exam: CT Maxillofacial Without Contrast Exam date and time: 04/29/2025 6:41 AM Age: 69 years old Clinical indication: Injury or trauma; Blunt trauma (contusions or hematomas); Head/scalp; Loss of consciousness not known; Injury date: 04/29/25; Recent stroke and tnk, , now fall on R side TECHNIQUE: Imaging protocol: Computed tomography of the face without contrast. Radiation optimization: All CT scans at this facility use at least one of these dose optimization techniques: automated exposure control; mA and/or kV adjustment per patient size (includes targeted exams where dose is matched to clinical indication); or iterative reconstruction. COMPARISON: CT BRAIN NECK CTA 04/24/2025 11:17 AM FINDINGS: Paranasal sinuses: No air-fluid levels. Orbital cavities: Orbits are normal. Globes are unremarkable. Teeth: Periapical lucencies in the maxilla and mandible may represent periapical abscess. Bones: No acute fracture Soft tissues: Unremarkable. IMPRESSION: Periapical lucencies in the maxilla and mandible may represent periapical abscess. No acute fracture PROCEDURE INFORMATION: Exam: CT Cervical Spine Without Contrast Exam date and time: 04/29/2025 6:41 AM Age: 69 years old Clinical indication: Injury or trauma; Blunt trauma (contusions or hematomas); Head/scalp; Loss of consciousness not known; Injury date: 04/29/25; Recent stroke and tnk, , now fall on R side TECHNIQUE: Imaging protocol: Computed tomography of the cervical spine without contrast. Radiation optimization: All CT scans at this facility use at least one of these dose optimization techniques: automated exposure control; mA and/or kV adjustment per patient size (includes targeted exams where dose is matched to clinical indication); or iterative reconstruction. COMPARISON: CT BRAIN NECK CTA 04/24/2025 11:17 AM FINDINGS: Bones: No acute fracture of the cervical spine. No subluxation or dislocation of the cervical spine. Intervertebral disc space narrowing C4/C5 may represent degenerative disc disease.. Anterior osteophyte formation C4/C5. Posterior osteophyte formation C4/C5. Degenerative changes in the facets at multiple levels. Degenerative changes at C1/C2 Lungs: Lung apices are normal. Thyroid: Nodule in the left lobe of the thyroid measures 17 mm. Recommend thyroid ultrasound Soft tissues: Unremarkable. IMPRESSION: 1. No acute fracture of the cervical spine. 2. No subluxation or dislocation of the cervical spine. 3. Intervertebral disc space narrowing C4/C5 may represent degenerative disc disease.. Dictated and Authenticated by: Moe Soliman MD. Orderin Claudine Ridley MD
--- NOTE | 2025-04-29 08:07 | DI.VRAD_ITS ---
PROCEDURE INFORMATION: Exam: CT Abdomen And Pelvis With Contrast Exam date and time: 04/29/2025 6:50 AM Age: 69 years old Clinical indication: Nausea and vomiting; N/v, recent tnk from stroke TECHNIQUE: Imaging protocol: Computed tomography of the abdomen and pelvis with contrast. Radiation optimization: All CT scans at this facility use at least one of these dose optimization techniques: automated exposure control; mA and/or kV adjustment per patient size (includes targeted exams where dose is matched to clinical indication); or iterative reconstruction. Contrast material: OMNI 350; Contrast volume: 75 ml; Contrast route: INTRAVENOUS (IV); COMPARISON: CR XR THORACIC SPINE COMPLETE 06/23/2022 9:15 AM FINDINGS: Liver: Normal. No mass. Gallbladder and biliary ducts: Normal. No calcified stones. No ductal dilation. Pancreas: Normal. No ductal dilation. Spleen: Normal. No splenomegaly. Adrenal glands: Normal. No mass. Kidneys and ureters: 2.7 cm mass in the left kidney measures 25 Hounsfield units. (series 8, image 45). 2.3 cm mass anterior right kidney series 8, image 42 measures 110 Hounsfield units.. Stomach and bowel: No obstruction. No mucosal thickening. The rectum is distended 6 cm with fecal material Appendix: Normal appendix Intraperitoneal space: Unremarkable. No free air. No significant fluid collection. Vasculature: Unremarkable. No abdominal aortic aneurysm. Lymph nodes: Unremarkable. No enlarged lymph nodes. Urinary bladder: The bladder is distended 10.8 cm Reproductive: The prostate is enlarged, greater than 5 cm. Recommend urology consult. Hydrocele in the scrotum. 3.1 cm fluid collection in the inferior scrotum posterior to the hydrocele (series 8, image 135).Differential includes abscess, hematoma, seroma. Bones/joints: Unremarkable. No acute fracture. Soft tissues: Unremarkable IMPRESSION: 1. 2.7 cm mass in the left kidney measures 25 Hounsfield units. (series 8, image 45). 2.3 cm mass anterior right kidney series 8, image 42 measures 110 Hounsfield units. Rule out renal cell carcinoma. 2. Hydrocele in the scrotum. 3 3.1 cm fluid collection in the inferior scrotum posterior to the hydrocele (series 8, image 135).Differential includes abscess, hematoma, seroma. THIS REPORT CONTAINS FINDINGS THAT MAY BE CRITICAL TO PATIENT CARE. The findings were verbally communicated via telephone conference with dr espinosa at 8:04 AM EST on 04/29/2025. The findings were acknowledged and understood. Dictated and Authenticated by: Moe Soliman MD. Orderin Claudine Ridley MD
--- NOTE | 2025-04-29 08:33 | ED.PROG_ITS ---
Date of service: 04/29/25 Time of Service: 08:[address] head and face negative for acute traumatic findings. There was a question of periapical abscesses but he has no visible abscess and no pain. Will have him follow-up with dentist. CT abdomen pelvis shows no traumatic findings but does have a lesion in his left kidney that is concerning for possible carcinoma, also has a hydrocele. He has no testicular tenderness or erythema or warmth or pain so I doubt entities such as abscess. Suspect that the fluid collection near the hydrocele is a seroma. I discussed results with him and he is feeling improved. He says he has a follow-up appointment on Thursday and I advised he should di scuss with his PCP about having an outpatient MRI to further assess this kidney lesion. I suspect that he was orthostatic as he states he was laying down when he stood up to start walking, he does not have a walker which I feel he would benefit from. He is stable for discharge and will follow-up with his PCP. He did have some elevated blood pressure readings here and I offered to start him on an antihypertensive but he declined and has medical decision making capacity and states he wants to discuss it with his PCP on Thursday. Quality:SDOH Health Related Social Needs: Health related social needs lonely/isolated Discharge Plan Disposition Patient Disposition: Home Condition: Stable Discharge Details Clinical Impression: Fall, Episodic lightheadedness Primary Care Provider: Kenya Lewis ED Provider: Silverio Cornejo Home Meds and New Rx's Prescriptions: New clindamycin HCl 150 mg capsule 450 mg PO TID 7 Days Qty: 63 0RF meclizine 25 mg tablet 25 mg PO BID PRN (Reason: dizziness) Qty: 30 0RF Continued brimonidine-timolol [Combigan] 0.2-0.5 % drops 1 drp ophthalmic (eye) BID atorvastatin [Lipitor] 80 mg tablet 80 mg PO DAILY Rx Instructions: Take for 90 days aspirin 81 mg tablet,chewable 81 mg PO DAILY Rx Instructions: take X 90 days sildenafil (pulm.hypertension) 20 mg tablet 20 mg PO As directed Qty: 20 4RF Discharge Instructions Additional Instructions: Your blood work and imaging did not show any acute emergent findings. You have a lesion in your left kidney which will need follow-up MRI as an outpatient and you should let your primary care know about this so they can order the MRI. On the CT it looks like you do have dental abscesses so I would recommend following up with your dentist. If you feel more ill, have new symptoms such as difficulty breathing or persistent vomiting return to the emergency department for reevaluation. Stand Alone Forms: Portal Information
[2025-04-29] MEDS: Ondansetron O.D.T. 4 MG TABEF PO (08:46)
[2025-04-29] MEDS: LORazepam 0.5 MG TAB PO (08:46)
[2025-04-29] MEDS: Clindamycin 150 MG CAP, 12 CAPS/BTL 450 MG PO (09:36)
== END 2025-04-29 10:08 | disposition home or self-care (01) ==
PROVIDERS: Student in an Organized Health Care Education/Training Program; Emergency Provider Emergency Medicine; PCP Nurse Practitioner Family
DX: R42 Dizziness and giddiness (principal); I10 Essential (primary) hypertension; R11.0 Nausea; Z86.73 Personal history of transient ischemic attack (TIA), and cerebral infarction without residual deficits; Z60.8 Other problems related to social environment; W19.XXXA Unspecified fall, initial encounter
CPT/HCPCS: 00123; 80053; 83690; 96360; 96361; 99285; 70450; 70486; 72125; 74177; 85025; 99284; J3490

== ENCOUNTER → 2025-06-01 00:17 | Outpatient (CLI) | payer MEDICARE, SELFPAY ==
--- NOTE | 2025-06-01 13:22 | DI.US_ITS ---
Exam(s) US SCROTUM EXAM: US SCROTUM CLINICAL HISTORY: Follow up on incidental findings,lt hydrocele,n43.3. TECHNIQUE: Scrotal ultrasound performed using grayscale, color-flow and spectral Doppler analysis. COMPARISON: CT CT ABDOMEN PELVIS W from 04/29/2025 FINDINGS: Right testicle: 3.6 x 2.7 x 3.5 cm Echogenicity: Normal. Contour: Smooth. Mass: None seen. Microlithiasis: None. Hydrocele: There is a hydrocele measuring 2.2 x 1.2 x 3.3 cm. Variocele: None. Hernia: No peristalsing bowel loop identified. Epididymis: Epididymal head cysts are noted. The largest measures 5.2 x 3.3 x 6.7 cm. Left testicle: 4.7 x 2.5 x 3.3 cm Echogenicity: Normal. Contour: Smooth. Mass: None seen. Microlithiasis: None. Hydrocele: There is a 1.9 x 1.1 x 1.7 cm hydrocele. Variocele: None. Hernia: No peristalsing bowel loop identified. Epididymis: There are epididymal head cysts present. The largest measures 3.4 x 2.4 x 2.8 cm. DOPPLER: Color: Symmetric and uniform, no hyperemia. IMPRESSION: 1. Normal appearing bilateral testicles. 2. Moderate right and small left hydroceles. 3. Multiple bilateral epididymal head cysts/spermatoceles. The largest is on the right and measures 5.2 x 3.3 x 6.7 cm. DATA REPOSITORY:
--- NOTE | 2025-06-01 13:22 | DI.US_ITS ---
Exam(s) US RENAL EXAM: US RENAL CLINICAL HISTORY: Follow up on incidental findings,cyst lt kidney,n28.1. TECHNIQUE: Don scale, color and spectral Doppler were used. COMPARISON: CT CT ABDOMEN PELVIS W from 04/29/2025 FINDINGS: Renal size in cm: Right: 9.7. Left: 9.7. Echogenicity: Normal. Hydronephrosis: No. Cyst or mass: There is a 1.5 x 1.8 x 1.7 cm simple cyst in the left kidney. There is no solid renal mass seen in either kidney. The small size of the right renal lesion may not be detectable on the ultrasound. Nephrolithiasis: No. Other findings: None. Bladder:Normal. Ureteral jets: Right: Visualized and unremarkable. Left: Visualized and unremarkable. Prevoid vol:420 cc Postvoid vol:201 cc Prostate: 21 cc Renal color flow: Symmetric and within normal limits. IMPRESSION: 1. There is a simple cyst in the left kidney which likely corresponds to this finding on the CT examination from 04/29/2025. 2. The right renal lesion is not seen sonographically. 3. Given the findings on the CT scan, an MRI of the kidneys without and with contrast is recommended for further characterization. 4. Large postvoid urinary bladder residual. DATA REPOSITORY:
== END ==
LOC: DI 00:17
PROVIDERS: PCP Nurse Practitioner Family; Visit Provider Nurse Practitioner Family
DX: N28.1 Cyst of kidney, acquired (principal); N43.3 Hydrocele, unspecified
CPT/HCPCS: 76770; 76870